=== PATIENT | male | born 1940 | race African-American/Black ===

== ENCOUNTER 2017-04-15 20:16 | Inpatient (IN) | payer MEDICARE, OTHER ==
[~2017-04-15] VITALS: Ht 198.1 cm; Wt 134.2 kg
[~2017-04-15 20:16] MED LIST: AMLO10TA2 OR; CARV25TA OR; FURO10SO OR; LISI-646 OR; METF-370 OR; POTA12PO2 OR
[2017-04-15] MEDS ORDERED: NOREPINEPHRINE 8 MG/250ML KIT 250 ML IV ONE (20:43)
[2017-04-15 21:25] LABS: Basophils # (auto) 0.1 uL; Basophils % (auto) 0.6 % (0.0-2.0); Eosinophils # (auto) 0 uL; Eosinophils % (auto) 0.2 % (0.0-7.0); Hematocrit 42.6 % (41.0-53.0); Hemoglobin 13.4 g/dL (13.5-17.5); Lymphocytes # (auto) 2.2 uL; Mean Corpuscular Hemoglobin 29.5 pg (28.0-32.0); Mean Corpuscular Hgb Conc. 31.4 g/dL (32.0-36.0); Monocytes # (auto) 1.5 uL; Monocytes % (auto) 9.4 % (0.0-12.0); Neutrophils # (auto) 11.8 uL; Neutrophils % (auto) 75.8 % (37.0-80.0); Nucleated Red Blood Cells % 0.2 %; Platelet Count (auto) 209 10^3/uL (140-450); Red Blood Cells 4.53 10^6/uL (4.5-5.90); White Blood Cell 15.5 10^3/uL (4.4-10.8)
[2017-04-15 22:11] LABS: INR 1.05 (0.9-1.15); Partial Thromboplastin Time 28.2 sec (22.64-33.71); Prothrombin Time 11.5 sec (9.37-12.3)
[2017-04-15 22:23] LABS: Albumin 2.7 g/dL (3.4-5.0); BUN/Creatinine Ratio 14.8; Bilirubin, Total 0.3 mg/dL (0.2-1.0); Magnesium 3.3 mg/dL (1.6-2.6); Total Protein 7.4 g/dL (6.4-8.2)
[2017-04-15 22:27] LABS: Potassium 6.1 mmol/L (3.5-5.1)
[2017-04-15] MEDS ORDERED: FUROSEMIDE 20 MG/2 ML VIAL IV ONE (22:30)
[2017-04-15] MEDS ORDERED: InsuLIN REG 1unit/0.01ml Soln (100units/ml) IV ONE (22:45)
[2017-04-15] MEDS ORDERED: ASPirin 325 MG TAB PO ONE (22:45)
[2017-04-15] MEDS ORDERED: CALCIUM GLUC 4.65meq/50ml D5AE 50 ML IV ONE (22:45)
[2017-04-15] MEDS ORDERED: DEXTROSE (50%) 50ML SYRG IV ONE (22:45)
[2017-04-15] MEDS ORDERED: SODIUM POLYSTYRENE SULF 15GM/60ML SUSP PR ONE (22:45)
[2017-04-15] MEDS ORDERED: ENOXAPARIN SOD 150 MG/1 ML SYRINGE SC ONE (22:45)
[2017-04-15] MEDS ORDERED: SODIUM BICARBONATE 8.4 % INJ 50ML VIAL IV ONE (22:45)
[2017-04-15 23:54] LABS: Urine WBC None Seen /hpf (0 - 3)
[2017-04-16] VITALS (20 sets, daily range): BP systolic 64–131; BP diastolic 20–71
[2017-04-16 00:06] LABS: Urine Amorphous Crystal FEW /hpf (None Seen); Urine Bacteria NONE SEEN /hpf (None Seen); Urine Blood TRACE /uL (Negative); Urine Specific Gravity 1.021 (1.001-1.035)
[2017-04-16 00:15] LABS: Amphetamine Screen, Urine NEGATIVE (NEGATIVE); Barbiturate Scree,Urine NEGATIVE (NEGATIVE); Benzodiazephine Screen, Urine NEGATIVE (NEGATIVE); Cannabinoid Screen, Urine NEGATIVE (NEGATIVE); Cocaine Screen, Urine NEGATIVE (NEGATIVE); Opiate Scree,Urine POSITIVE (NEGATIVE); Phencyclidine Screen, Urine NEGATIVE (NEGATIVE)
[2017-04-16] MEDS: NOREPINEPHRINE 8 MG/250ML KIT 250 ML IV SCH (02:40)
[2017-04-16] MEDS ORDERED: SODIUM CHLORIDE 0.9% 1,000 ML IV SCH (03:02)
[2017-04-16] MEDS ORDERED: TEMAZEPAM 15 MG CAP PO PRN (03:15)
[2017-04-16] MEDS ORDERED: MORPHINE SULFATE 4 MG/ML SYR/VIAL IV PRN (03:15)
[2017-04-16] MEDS ORDERED: ONDANSETRON HCL 4 MG/2 ML VIAL IV PRN (03:15)
[2017-04-16] MEDS ORDERED: NITROGLYCERIN 0.4 MG SL TAB SL PRN (03:15)
[2017-04-16] MEDS ORDERED: HYDROcodone-ACET 5/325MG TAB PO PRN (03:15)
[2017-04-16] MEDS ORDERED: ACETAMINOPHEN 325 MG TAB PO PRN (03:15)
[2017-04-16] MEDS ORDERED: DEXTROSE (50%) 50ML SYRG IV PRN (03:15)
[2017-04-16] MEDS ORDERED: cefTRIAXone 1GM/10ml IVPUSH 10 ML IV ONE (04:00)
[2017-04-16] MEDS: ACCU-CHEK COMFORT CURVE STRIP VI SCH ×3 (06:00→18:30)
[2017-04-16] MEDS: InsuLIN REG 1unit/0.01ml Soln (100units/ml) SC SCH ×3 (06:00→18:37)
[2017-04-16] MEDS ORDERED: fentaNYL CITRATE 100 MCG/2 ML VL ONE (07:44)
[2017-04-16] MEDS ORDERED: ANGIOMAX 250 MG VIAL IV ONE (07:44)
[2017-04-16] MEDS ORDERED: ATROPINE SULF 0.5 MG/5ML SYR ONE (07:45)
[2017-04-16] MEDS ORDERED: EPINEPHrine HCL 1 MG/10 ML SYRG ONE (07:45)
[2017-04-16] MEDS ORDERED: SODIUM CHL 0.9% 50 ML ONE ×3 (07:45→08:55)
[2017-04-16] MEDS ORDERED: MIDAZOLAM HCL 1MG/1ML-2 ML VIAL ONE (07:45)
[2017-04-16] MEDS ORDERED: IOHEXOL 350 MG/ML 100ML IJ ONE (07:50)
[2017-04-16] MEDS ORDERED: LIDOCAINE 2%HCL (LOCAL ANESTH.) INJ 20ML MDV ONE (07:54)
[2017-04-16] MEDS ORDERED: SODIUM BICARBONATE 8.4 % INJ 50ML VIAL IV ONE ×2 (08:11→08:46)
[2017-04-16] MEDS ORDERED: IODIXANOL 320MG/ML 100ML BTL IV ONE ×2 (08:12→08:54)
[2017-04-16] MEDS ORDERED: EPINEPHrine HCL 250 ML IV ONE (08:44)
[2017-04-16] MEDS ORDERED: FUROSEMIDE 40 MG/4 ML VIAL ONE (08:53)
[2017-04-16] MEDS ORDERED: NITROGLYCERIN 5MG/ML 10ML VIAL IV ONE ×2 (08:54→08:55)
[2017-04-16] MEDS ORDERED: HEPARIN DRIP/D5W 100UNITS/ML 250 ML IV ONE (09:00)
[2017-04-16 09:05] LABS: Basophils # (auto) 0.1 uL; Basophils % (auto) 0.8 % (0.0-2.0); Eosinophils # (auto) 0 uL; Eosinophils % (auto) 0.1 % (0.0-7.0); Lymphocytes # (auto) 2.3 uL; Nucleated Red Blood Cells % 0.3 %
[2017-04-16 09:06] LABS: Hematocrit 38.4 % (41.0-53.0); Lymphocytes % (auto) 16.3 % (10.0-50.0); Mean Corpuscular Hemoglobin 28.7 pg (28.0-32.0); Mean Corpuscular Hgb Conc. 31.2 g/dL (32.0-36.0); Mean Corpuscular Volume 91.9 fL (80.0-100.0); Monocytes # (auto) 1.4 uL; Monocytes % (auto) 10.2 % (0.0-12.0); Neutrophils % (auto) 72.6 % (37.0-80.0); Platelet Count (auto) 199 10^3/uL (140-450); Red Blood Cells 4.17 10^6/uL (4.5-5.90); Red Cell Distribution Width 15.1 % (11.8-14.3); White Blood Cell 13.9 10^3/uL (4.4-10.8)
[2017-04-16] MEDS ORDERED: BUMETANIDE INJECTION 10 ML ONE (09:21)
[2017-04-16 09:25] LABS: Prothrombin Time 70.3 sec (9.37-12.3)
[2017-04-16 09:34] LABS: INR 6.33 (0.9-1.15)
[2017-04-16 09:45] LABS: BUN/Creatinine Ratio 16.3; Calcium 8.6 mg/dL (8.5-10.1); Potassium 4.4 mmol/L (3.5-5.1)
[2017-04-16] MEDS ORDERED: ONDANSETRON HCL 4 MG/2 ML VIAL ONE (09:50)
[2017-04-16] MEDS ORDERED: ASPirin 81 mg TAB PO SCH (10:00)
[2017-04-16] MEDS ORDERED: ONDANSETRON HCL 4 MG/2 ML VIAL IV ONE (10:00)
[2017-04-16] MEDS ORDERED: PANTOPRAZOLE 40 MG TAB PO SCH (10:00)
[2017-04-16] MEDS ORDERED: ROCURONIUM 10MG/ML 10ML VIAL IV ONE (10:13)
[2017-04-16] MEDS ORDERED: ETOMIDATE (2MG/ML) 20ML VIAL IV ONE (10:13)
[2017-04-16] MEDS ORDERED: SUCCINYLCHOLINE CHLORIDE 20 MG/ML 10ML VIAL IV ONE (10:14)
[2017-04-16] MEDS ORDERED: MIDAZOLAM DRIP 50 mg/50mL 50 ML IV ONE ×2 (10:25→21:34)
[2017-04-16] MEDS ORDERED: PHENTOLAMINE MESYLATE 5 MG INJ VIAL SUBCUT ONE (11:15)
[2017-04-16] MEDS ORDERED: PROPOFOL 100 ML IV ONE ×4 (11:30→21:48)
[2017-04-16] MEDS ORDERED: NITROGLYCERIN 2% OINT 1GM PKG TD ONE (11:45)
[2017-04-16] MEDS ORDERED: CLOPIDOGREL 300 MG TAB ONE (11:47)
[2017-04-16] MEDS: FUROSEMIDE INJECTION 250 MG in D5W 5% 225 ML IV SCH (12:00)
[2017-04-16] MEDS ORDERED: MIDAZOLAM DRIP 50 mg/50mL 100 ML IV ONE (13:06)
[2017-04-16 13:39] LABS: Cholesterol 80 mg/dL (< 200); HDL Cholesterol 52 mg/dL (40-59); LDL Cholesterol 31 mg/dL (< 100); Triglycerides 99 mg/dL (< 150)
[2017-04-16] MEDS ORDERED: CLOPIDOGREL 300 MG TAB PO ONE (14:00)
[2017-04-16] MEDS ORDERED: PANTOPRAZOLE 40 MG/10 ML VIAL IV ONE (15:00)
[2017-04-16] MEDS: EPINEPHrine HCL INJECTION 4 MG in SODIUM CHL 0.9% 250 ML IV SCH (15:00)
[2017-04-16] MEDS: HEPARIN DRIP/D5W 100UNITS/ML 250 ML IV SCH (15:00)
[2017-04-16] MEDS ORDERED: PANTOPRAZOLE 40 MG/10 ML VIAL IV SCH (15:00)
[2017-04-16] MEDS ORDERED: OPTISON 3ml Vial for INJ IV ONE (15:56)
[2017-04-16 16:15] LABS: INR 1.34 (0.9-1.15); Partial Thromboplastin Time 52.1 sec (22.64-33.71); Prothrombin Time 14.7 sec (9.37-12.3)
[2017-04-16 16:18] LABS: Calcium 8.7 mg/dL (8.5-10.1); Potassium 3.8 mmol/L (3.5-5.1)
[2017-04-16] MEDS ORDERED: ENOXAPARIN SOD 150 MG/1 ML SYRINGE SC SCH (22:00)
[2017-04-16] MEDS ORDERED: FAMOTIDINE (10MG/ML) 2ML VL IV SCH (22:00)
[2017-04-16] MEDS ORDERED: ATORVASTATIN 20 MG TAB PO SCH (22:00)
[2017-04-16] MEDS ORDERED: EPINEPHrine HCL 250 ML IV SCH (23:18)
[2017-04-16] MEDS: MIDAZOLAM DRIP 50 mg/50mL 50 ML IV SCH (23:18)
[2017-04-16] MEDS ORDERED: PROPOFOL 100 ML IV SCH (23:18)
[2017-04-16 23:25] LABS: INR 1.2 (0.9-1.15); Partial Thromboplastin Time 37.8 sec (22.64-33.71); Prothrombin Time 13.1 sec (9.37-12.3)
[2017-04-17] VITALS (52 sets, daily range): BP systolic 48–141; BP diastolic 17–86
[2017-04-17] MEDS ORDERED: ACETAMINOPHEN 650 mg PER 20 mL UD ONE (01:58)
[2017-04-17] MEDS ORDERED: ACETAMINOPHEN 650 mg PER 20 mL UD GT PRN (02:00)
[2017-04-17 04:05] LABS: Basophils # (auto) 0.1 uL; Basophils % (auto) 0.5 % (0.0-2.0); Eosinophils # (auto) 0 uL; Hematocrit 38.2 % (41.0-53.0); Hemoglobin 12.2 g/dL (13.5-17.5); Lymphocytes % (auto) 13.9 % (10.0-50.0); Mean Corpuscular Hgb Conc. 31.9 g/dL (32.0-36.0); Mean Corpuscular Volume 90.9 fL (80.0-100.0); Monocytes # (auto) 1.7 uL; Monocytes % (auto) 11.9 % (0.0-12.0); Neutrophils # (auto) 10.4 uL; Neutrophils % (auto) 73.7 % (37.0-80.0); Nucleated Red Blood Cells % 0.6 %; Platelet Count (auto) 204 10^3/uL (140-450); Red Blood Cells 4.21 10^6/uL (4.5-5.90); Red Cell Distribution Width 14.8 % (11.8-14.3); White Blood Cell 14.1 10^3/uL (4.4-10.8)
[2017-04-17 04:19] LABS: INR 1.18 (0.9-1.15); Partial Thromboplastin Time 33.8 sec (22.64-33.71); Prothrombin Time 12.9 sec (9.37-12.3)
[2017-04-17 04:26] LABS: Albumin 2.3 g/dL (3.4-5.0); BUN/Creatinine Ratio 20.1; Bilirubin, Total 0.3 mg/dL (0.2-1.0); Calcium 8.8 mg/dL (8.5-10.1); Potassium 3.4 mmol/L (3.5-5.1); Total Protein 6.9 g/dL (6.4-8.2)
[2017-04-17] MEDS ORDERED: HEPARIN SODIUM (PORCINE) 5000 UNITS/ML 1ML VIAL ONE (05:35)
[2017-04-17] MEDS: HEPARIN DRIP/D5W 100UNITS/ML 250 ML IV SCH (05:42)
[2017-04-17] MEDS: InsuLIN REG 1unit/0.01ml Soln (100units/ml) SC SCH ×3 (05:54→11:58)
[2017-04-17] MEDS: ACCU-CHEK COMFORT CURVE STRIP VI SCH ×3 (05:54→11:52)
[2017-04-17] MEDS ORDERED: cefTRIAXone 1GM/10ml IVPUSH 10 ML IV SCH (09:00)
[2017-04-17] MEDS: MIDAZOLAM DRIP 50 mg/50mL 50 ML IV SCH (09:38)
[2017-04-17] MEDS: NOREPINEPHRINE 8 MG/250ML KIT 250 ML IV SCH (10:00)
[2017-04-17] MEDS ORDERED: CLOPIDOGREL BISULFATE 75 MG TAB PO SCH (10:00)
[2017-04-17] MEDS ORDERED: PANTOPRAZOLE 40 MG/10 ML VIAL IV SCH (10:00)
[2017-04-17] MEDS: EPINEPHrine HCL INJECTION 4 MG in SODIUM CHL 0.9% 250 ML IV SCH (10:00)
[2017-04-17 10:39] LABS: INR 1.2 (0.9-1.15); Prothrombin Time 13.1 sec (9.37-12.3)
[2017-04-17] MEDS ORDERED: HEPARIN DRIP/D5W 100UNITS/ML 250 ML IV SCH (11:45)
[2017-04-17] MEDS: FUROSEMIDE INJECTION 250 MG in D5W 5% 225 ML IV SCH (11:58)
[2017-04-17] MEDS ORDERED: MIDAZOLAM DRIP 50 mg/50mL 50 ML IV ONE (15:21)
[2017-04-17] MEDS ORDERED: PROPOFOL 100 ML IV ONE (15:21)
== END 2017-04-17 16:25 | disposition short-term general hospital (02) | DRG 270 ==
LOC: EDBD 20:16 → ER 20:24 → OVERFLOW 20:25 → ICU WEST 04-16 16:24 → UNDODISIN 04-17 14:02
PROVIDERS: ADMIT Nurse Practitioner; ATTEND Family Medicine
PROC: 027135Z Dilation of Coronary Artery, Two Arteries with Two Drug-eluting Intraluminal Devices, Percutaneous Approach (ICD-10-PCS; principal; 2017-04-16)
PROC: 5A02210 Assistance with Cardiac Output using Balloon Pump, Continuous (ICD-10-PCS; 2017-04-16)
PROC: 02C03ZZ Extirpation of Matter from Coronary Artery, One Artery, Percutaneous Approach (ICD-10-PCS; 2017-04-16)
PROC: 4A023N7 Measurement of Cardiac Sampling and Pressure, Left Heart, Percutaneous Approach (ICD-10-PCS; 2017-04-16)
PROC: B2111ZZ Fluoroscopy of Multiple Coronary Arteries using Low Osmolar Contrast (ICD-10-PCS; 2017-04-16)
PROC: B2151ZZ Fluoroscopy of Left Heart using Low Osmolar Contrast (ICD-10-PCS; 2017-04-16)
PROC: 02HQ32Z Insertion of Monitoring Device into Right Pulmonary Artery, Percutaneous Approach (ICD-10-PCS; 2017-04-16)
PROC: 4A133B3 Monitoring of Arterial Pressure, Pulmonary, Percutaneous Approach (ICD-10-PCS; 2017-04-16)
PROC: 4A1239Z Monitoring of Cardiac Output, Percutaneous Approach (ICD-10-PCS; 2017-04-16)
PROC: B24BZZ4 Ultrasonography of Heart with Aorta, Transesophageal (ICD-10-PCS; 2017-04-16)
PROC: 5A1945Z Respiratory Ventilation, 24-96 Consecutive Hours (ICD-10-PCS; 2017-04-16)
PROC: 0BH17EZ Insertion of Endotracheal Airway into Trachea, Via Natural or Artificial Opening (ICD-10-PCS; 2017-04-16)
PROC: 06HY33Z Insertion of Infusion Device into Lower Vein, Percutaneous Approach (ICD-10-PCS; 2017-04-16)
DX: I21.3 ST elevation (STEMI) myocardial infarction of unspecified site (principal); J96.00 Acute respiratory failure, unspecified whether with hypoxia or hypercapnia; N17.0 Acute kidney failure with tubular necrosis; R57.0 Cardiogenic shock; E66.01 Morbid (severe) obesity due to excess calories; I07.1 Rheumatic tricuspid insufficiency; E11.22 Type 2 diabetes mellitus with diabetic chronic kidney disease; I13.0 Hypertensive heart and chronic kidney disease with heart failure and stage 1 through stage 4 chronic kidney disease, or unspecified chronic kidney disease; Q21.0 Ventricular septal defect; E11.65 Type 2 diabetes mellitus with hyperglycemia; D72.829 Elevated white blood cell count, unspecified; Z68.34 Body mass index [BMI] 34.0-34.9, adult; E78.00 Pure hypercholesterolemia, unspecified; E78.5 Hyperlipidemia, unspecified; E87.5 Hyperkalemia; F17.210 Nicotine dependence, cigarettes, uncomplicated; I25.10 Atherosclerotic heart disease of native coronary artery without angina pectoris; I35.1 Nonrheumatic aortic (valve) insufficiency; G47.00 Insomnia, unspecified; I50.9 Heart failure, unspecified; I77.1 Stricture of artery; I87.2 Venous insufficiency (chronic) (peripheral); N18.9 Chronic kidney disease, unspecified; R79.1 Abnormal coagulation profile; Z86.73 Personal history of transient ischemic attack (TIA), and cerebral infarction without residual deficits; Z89.429 Acquired absence of other toe(s), unspecified side; Z90.49 Acquired absence of other specified parts of digestive tract; Z88.6 Allergy status to analgesic agent; Z79.899 Other long term (current) drug therapy
CPT/HCPCS: 33967; 36415; 36600; 51702; 71045; 80048; 80053; 80061; 80307; 81001; 82805; 82962; 83036; 83735; 83880; 84132; 84443; 84484; 85025; 85379; 85610; 85730; 87040; 87070; 87205; 87804; 92928; 92933; 93005; 93306; 93312; 93313; 93458; 93503; 94002; 94003; 94660; 96361; 96365; 96372; 96375; 99152; C1751; C1874; C1887; C9113; G0378; J0171; J0330; J0461; J0610; J1815; J2250; J2405; J2704; J3490; J7060; Q9956; Q9967